=== PATIENT | male | born 1960 | race Caucasian/White ===

== ENCOUNTER 2018-01-18 14:36 | Inpatient (IN) | payer OTHER ==
[2018-01-18 17:49] VITALS: BMI 20.9
--- NOTE | 2018-01-18 21:26 | HP ---
COWS - Scale Resting Pulse: 0= [place] 80 or Below Sweatin=Flushed/Facial Moisture Restless Observation: 1= Difficult to Sit Still Pupil Size: 1= Pupils >than Normal Bone or Joint Aches: 2= Severe Diffuse Aches Runny Nose/ Eye Tearin= Runny Nose/Eyes GI Upset > 30mins: 1= Stomach Cramp Tremor Observation: 4= Gross Tremor/Twitching Yawning Observation: 1= 1-2x During Session Anxiety or Irritability: 2=Irritable/Anxious Goose Flesh Skin: 3=Piloerection COWS Score: 19 CIWA Score - CIWA Score Nausea/Vomitin-Mild Nausea/No Vomiting Muscle Tremors: 4-Moderate,w/Arms Extend Anxiety: 4-Mod. Anxious/Guarded Agitation: 4-Moderately Restless Paroxysmal Sweats: 3 Orientation: 0-Oriented Tacttile Disturbances: 0-None Auditory Disturbances: 0-None Visual Disturbances: 0-None Headache: 2-Mild CIWA-Ar Total Score: 18 Admission ROS S - HPI Chief Complaint: Alcohol and heroin withdrawal symptoms Allergies/Adverse Reactions: Allergies Allergy/AdvReac Type Severity Reaction Status Date / Time No Known Allergies Allergy Verified 01/18/18 18:29 History of Present Illness: 57 years old male with a long history of alcohol and heroin withdrawal symptoms is seeking admission to detox. Patient has been to previous detox and reports 5 years of sobriety. He has COPD, HTN, anxiety and depression. He denies suicide attempt and suicidal ideation at this time. This is his first admission to [facility]. Exam Limitations: No Limitations - Ebola screening Have you traveled outside of the country in the last 21 days: No (N) Have you had contact with anyone from an Ebola affected area: No Have you been sick,other than usual withdrawal symptoms: No Do you have a fever: No - Review of Systems Constitutional: Chills, Loss of Appetite, Malaise, Weakness EENT: reports: Nose Congestion, Dental Problems Respiratory: reports: No Symptoms reported Cardiac: reports: No Symptoms Reported GI: reports: Poor Appetite, Poor Fluid Intake, Abdominal cramping : reports: No Symptoms Reported Musculoskeletal: reports: Back Pain, Muscle Pain, Muscle Weakness Integumentary: reports: Dryness Neuro: reports: Tremors Endocrine: reports: No Symptoms Reported Hematology: reports: No Symptoms Reported Psychiatric: reports: Anxious, Depressed Patient History - Patient Medical History Hx Anemia: No Hx Asthma: No Hx Chronic Obstructive Pulmonary Disease (COPD): Yes (Not on medication) Hx Cardiac Disorders: No Hx Congestive Heart Failure: No Hx Hypertension: No Hx Hypercholesterolemia: No Hx Pacemaker: No HX Cerebrovascular Accident: No Hx Seizures: No Hx Diabetes: No Hx Gastrointestinal Disorders: No Hx Liver Disease: No Hx Genitourinary Disorders: No Hx Sexually Transmitted Disorders: No Hx Renal Disease (ESRD): No Hx Thyroid Disease: No Hx Human Immunodeficiency Virus (HIV): No (Negative 2017) Hx Hepatitis C: No Hx Depression: Yes (Not on medication) Hx Suicide Attempt: No (Denies suicide attem ptr and suicidal ideation at this time) Hx Bipolar Disorder: No Hx Schizophrenia: No Other Medical History: Anxiety - Not on medication - Patient Surgical History Past Surgical History: No Hx Neurologic Surgery: No Hx Cataract Extraction: No Hx Cardiac Surgery: No Hx Breast Biopsy: No Hx Abdominal Surgery: No Hx Appendectomy: No Hx Genitourinary Surgery: No Hx Section: No Hx Orthopedic Surgery: No Anesthesia Reaction: No - PPD History Previous Implant?: Yes Documented Results: Negative w/o proof Implanted On Prior R Admission?: No PPD to be Administered?: Yes - Reproductive History Patient is a Female of Child Bearing Age (11 -55 yrs old): No (Male) - Smoking Cessation Smoking history: Current every day smoker Have you smoked in the past 12 months: Yes Aproximately how many cigarettes per day: 20 Hx Chewing Tobacco Use: No Initiated information on smoking cessation: Yes 'Breaking Loose' booklet given: 01/18/18 - Substance & Tx. History Hx Alcohol Use: Yes Hx Substance Use: Yes Substance Use Type: Cocaine Hx Substance Use Treatment: Yes ([facility]) - Substances Abused Alcohol Route: Oral Frequency: Daily Amount used: LIQUOR- 5 PINTS Age of first use: 18 Date of Last Use: 01/17/18 Heroin Route: Injection Frequency: Daily Amount used: 20 bags Age of first use: 50 Date of Last Use: 01/17/18 Family Disease History - Family Disease History Family History: Denies Admission Physical Exam BHS - Vital Signs Vital Signs: Vital Signs - 24 hr 01/18/18 01/18/18 17:44 18:04 Temperature 98.8 F 98.3 F Pulse Rate 74 74 Respiratory 20 20 Rate Blood Pressure 179/143 179/143 - Physical General Appearance: Yes: Moderate Distress, Tremorous, Irritable, Sweating, Anxious HEENTM: Yes: Normal ENT Inspection, Normocephalic, Normal Voice, TAMANNA Respiratory: Yes: Lungs Clear, Normal Breath Sounds, No Respiratory Distress Neck: Yes: Supple Breast: Yes: Breast Exam Deferred Cardiology: Yes: Regular Rhythm, Regular Rate Abdominal: Yes: Normal Bowel Sounds, Soft Genitourinary: Yes: Within Normal Limits Back: Yes: Normal Inspection Musculoskeletal: Yes: Back pain, Muscle Pain Extremities: Yes: Tremors Neurological: Yes: Alert, Normal Mood/Affect Integumentary: Yes: Dry Lymphatic: Yes: Within Normal Limits - Diagnostic (1) Opioid dependence with withdrawal Current Visit: Yes Status: Chronic (2) Cocaine dependence, uncomplicated Current Visit: Yes Status: Chronic (3) Nicotine dependence Current Visit: Yes Status: Chronic (4) HTN (hypertension) Current Visit: Yes Status: Chronic (5) Anxiety Current Visit: Yes Status: Chronic (6) Depression Current Visit: Yes Status: Chronic Qualifiers: Depression Type: unspecified Qualified Code(s): F32.9 - Major depressive disorder, single episode, unspecified (7) COPD (chronic obstructive pulmonary disease) Current Visit: Yes Status: Acute BHS Breath Alcohol Content Breath Alcohol Content: 0 Urine Drug Screen - Results Drug Screen Negative: No Urine Drug Screen Results: MJ-Cocaine, OPI-Opiates, OXY-Oxycodone
[2018-01-18] MEDS ORDERED: MAGNESIUM HYDROX 2400MG/30ML ORAL SUSPENSION 30 ML CUP PO PRN (21:36)
[2018-01-18] MEDS ORDERED: LOPERAMIDE HCL 2 MG CAPSULE PO PRN (21:36)
[2018-01-18] MEDS ORDERED: MAG HYDROX/AL HYDROX/SIMETH 30 ML UNIT-DOSE CUP PO PRN (21:36)
[2018-01-18] MEDS ORDERED: MENTHOL/PHENOL 1 EACH UD MM PRN (21:36)
[2018-01-18] MEDS ORDERED: NICOTINE POLACRILEX 2 MG GUM BUC PRN (21:36)
[2018-01-18] MEDS ORDERED: P-EPHED 60MG/TRIPROLIDI 2.5MG TABLET PO PRN (21:36)
[2018-01-18] MEDS ORDERED: MAGNESIUM CITRATE 300 ML BOTTLE PO PRN (21:36)
[2018-01-18] MEDS ORDERED: IBUPROFEN 400 MG TABLET (FP) PO PRN (21:36)
[2018-01-18] MEDS ORDERED: METHADONE HCL 10 MG TABLET (FOR DETOX USE ONLY) PO ONE ×2 (21:36→23:00)
[2018-01-18] MEDS ORDERED: chlordiazePOXIDE HCL 25 MG CAPSULE PO PRN (21:36)
[2018-01-18] MEDS ORDERED: MELATONIN 5 MG TABLETS PO PRN (22:00)
[2018-01-18] MEDS: THIAMINE HCL 100 MG TABLET (FP) PO SCH (22:36)
[2018-01-18] MEDS: chlordiazePOXIDE HCL 25 MG CAPSULE PO SCH (22:37)
[2018-01-18] MEDS: guaiFENesin/D-METHORPHAN HB 10 ML UNIT-DOSE CUPS PO PRN (22:40)
[2018-01-18] MEDS ORDERED: cloNIDine HCL 0.1 MG TABLET PO ONE (22:45)
[2018-01-19 02:12] LABS: URINE APPEARANCE CLEAR; URINE BILIRUBIN NEGATIVE (<2.0 mg/dL); URINE COLOR YELLOW; URINE GLUCOSE (UA) NEGATIVE (NEGATIVE); URINE KETONE NEGATIVE (NEGATIVE); URINE LEUK ESTERASE NEGATIVE (NEGATIVE); URINE NITRITE NEGATIVE (NEGATIVE); URINE PROTEIN NEGATIVE (NEGATIVE); URINE UROBILINOGEN NEGATIVE mg/dL (0.2-1.0)
[2018-01-19] MEDS: ACETAMINOPHEN 325 MG TABLET (FP) PO PRN ×2 (02:50→10:25)
[2018-01-19] MEDS: chlordiazePOXIDE HCL 25 MG CAPSULE PO SCH ×4 (05:16→22:19)
[2018-01-19] MEDS ORDERED: cloNIDine HCL 0.1 MG TABLET PO ONE ×2 (06:56→15:50)
--- NOTE | 2018-01-19 07:03 | PN ---
BHS Progress Note Note: Patient;s blood pressure is B/P 191/96. Patient is asymptomatic Vital Signs Temperature 98.8 F 01/19/18 06:26 Pulse Rate 64 01/19/18 06:26 Respiratory Rate 18 01/19/18 06:30 Blood Pressure 191/96 01/19/18 06:26 O2 Sat by Pulse Oximetry (%) Action: Clonidine 0.2mg tablt oral ordered
[2018-01-19] MEDS: guaiFENesin/D-METHORPHAN HB 10 ML UNIT-DOSE CUPS PO PRN ×2 (09:15→22:22)
[2018-01-19] MEDS ORDERED: ALBUTEROL SO4 8 GM HFA INHALER IH ONE (09:17)
[2018-01-19] MEDS ORDERED: ALBUTEROL SO4 8 GM HFA INHALER IH PRN (09:19)
[2018-01-19] MEDS ORDERED: METHADONE HCL 10 MG TABLET (FOR DETOX USE ONLY) PO SCH (10:00)
[2018-01-19 10:09] LABS: HEMATOCRIT 39.6 % (35.4-49); HEMOGLOBIN 13.6 GM/dL (11.7-16.9); MCH 32.8 pg (25.7-33.7); MCHC 34.2 g/dl (32.0-35.9); MEAN CELL VOLUME 95.9 fl (80-96); MEAN PLT VOLUME 9.4 fl (7.5-11.1); PLATELET COUNT 259 K/MM3 (134-434); RBC 4.13 M/mm3 (4.00-5.60); RDW 14.7 % (11.9-15.9); WHITE BLOOD COUNT 6.9 K/mm3 (4.0-10.0)
[2018-01-19] MEDS: PRENATAL VITAMINS W/ FOLIC ACID TABLET (FP) PO SCH (10:24)
[2018-01-19] MEDS: NICOTINE 14 MG/24 HOURS TOPICAL PATCH TD SCH (10:25)
[2018-01-19] MEDS ORDERED: TRIMETHOBENZAMIDE HCL 200MG/2ML INJ IM PRN (10:48)
[2018-01-19] MEDS ORDERED: ALBUTEROL SO4 2.5/IPRATROPIUM 0.5 INH SOL 3 ML VIAL.NEB. NEB PRN (10:48)
[2018-01-19 10:55] LABS: CHLORIDE 101 mmol/L (98-107); SODIUM 139 mmol/L (136-145)
[2018-01-19 11:30] LABS: ALBUMIN 3.4 g/dl (3.4-5.0); ALK PHOS 110 U/L (45-117); ANION GAP 10 (8-16); BILIRUBIN,TOTAL 0.5 mg/dL (0.2-1.0); BLOOD UREA NITROGEN 13 mg/dL (7-18); CALCIUM 8.9 mg/dL (8.5-10.1); CO2 28 mmol/L (21-32); CREATININE 0.8 mg/dL (0.7-1.3); GLUCOSE,RANDOM 100 mg/dL (74-106); SGOT/AST 20 U/L (15-37); SGPT/ALT 24 U/L (12-78); TOT PROT 7.4 g/dl (6.4-8.2)
[2018-01-19] MEDS ORDERED: amLODIPine BESYLATE 10 MG TABLET (FP) PO ONE (11:30)
[2018-01-19] MEDS: LIDOCAINE 5% TOPICAL PATCH TP SCH (11:58)
--- NOTE | 2018-01-19 13:25 | CONSULT ---
[facility] Psychiatric Consult - Data Date of interview: 01/19/18 Admission source: [facility] Identifying data: Patient is a 59 year single male, father of four, unemployed, domiciled, and supported by [facility]. This is patient's first admission to detox at [facility]. Patient admitted for alcohol, cocaine, and heroin dependence. Substance Abuse History: Smoking Cessation. Smoking history: Current every day smoker. Have you smoked in the past 12 months: Yes. Aproximately how many cigarettes per day: 20. Hx Chewing Tobacco Use: No. Initiated information on smoking cessation: Yes. 'Breaking Loose' booklet given: 01/18/18. - Substance & Tx. History. Hx Alcohol Use: Yes. Hx Substance Use: Yes. Substance Use Type : Cocaine. Hx Substance Use Treatment: Yes ([facility]). - Substances Abused. Alcohol. Route: Oral. Frequency: Daily. Amount used: LIQUOR- 5 PINTS. Age of first use: 18. Date of Last Use: 01/17/18. Heroin. Route: Injection. Frequency: Daily. Amount used: 20 bags. Age of first use: 50. Date of Last Use: 01/17/18 Medical History: COPD, hypertension Psychiatric History: Patient denies h/o psychiatric hospitalization. Pt. saw a psychiatrist in 2005 after his mother pased away and was prescribed zoloft and risperdal. Patient discontinued medication after two weeks. Pt. denies current OPD. Pt. reports two suicide attempts via overdose on drugs. Physical/Sexual Abuse/Trauma History: Denies. Mental Status Exam - Mental Status Exam Alert and Oriented to: Time, Place, Person Cognitive Function: Good Patient Appearance: Unkempt Mood: Withdrawn, Anxious, Euthymic Affect: Mood Congruent Patient Behavior: Fatigued, Cooperative Speech Pattern: Appropriate Voice Loudness: Moderately Soft/Quiet Thought Process: Intact, Goal Oriented Thought Disorder: Not Present Hallucinations: Denies Suicidal Ideation: Denies Homicidal Ideation: Denies Insight/Judgement: Poor Sleep: Poorly Appetite: Poor Muscle strength/Tone: Normal Gait/Station: Normal Psychiatric Findings - Problem List (Colbert 1, 2,3) (1) Substance-induced sleep disorder Current Visit: Yes Status: Acute (2) Substance induced mood disorder Current Visit: Yes Status: Acute (3) COPD (chronic obstructive pulmonary disease) Current Visit: Yes Status: Chronic Qualifiers: COPD type: unspecified COPD Qualified Code(s): J44.9 - Chronic obstructive pulmonary disease, unspecified (4) Cocaine dependence, uncomplicated Current Visit: Yes Status: Chronic (5) HTN (hypertension) Current Visit: Yes Status: Chronic Qualifiers: Hypertension type: unspecified Qualified Code(s): I10 - Essential (primary ) hypertension (6) Nicotine dependence Current Visit: Yes Status: Chronic Qualifiers: Nicotine product type: cigarettes Substance use status: uncomplicated Qualified Code(s): F17.210 - Nicotine dependence, cigarettes, uncomplicated (7) Opioid dependence with withdrawal Current Visit: Yes Status: Acute - Initial Treatment Plan Initial Treatment Plan: Psychoeducation provided. Detoxification in progress. Ambien 10mg qhs prn ordered. Pt. reports favorable effect from accepting ambien in the past. Benefits and side effects discussed. Pt. made aware of the risk of parasomnia. Verbal consent given.
--- NOTE | 2018-01-19 14:12 | PN ---
S CIWA - CIWA Score Nausea/Vomitin Muscle Tremors: 3 Anxiety: 4-Mod. Anxious/Guarded Agitation: 4-Moderately Restless Paroxysmal Sweats: 2 Orientation: 2-Disoriented Date<2 days Tacttile Disturbances: 2-Mild Itch/Numbness/Burn Auditory Disturbances: 0-None Visual Disturbances: 1-Very Mild Sensitivity Headache: 0-None Present CIWA-Ar Total Score: 21 BHS COWS - Scale Resting Pulse: 0= [place] 80 or Below Sweatin= Chills/Flushing Restless Observation: 1= Difficult to Sit Still Pupil Size: 0= Normal to Room Light Bone or Joint Aches: 2= Severe Diffuse Aches Runny Nose/ Eye Tearin= None GI Upset > 30mins: 2= Nausea/Diarrhea Tremor Observation of Outstretched Hands: 2= Slight Tremor Visible Yawning Observation: 1= 1-2x During Session Anxiety or Irritability: 4=Extreme Anxiety Goose Flesh Skin: 3=Piloerection COWS Score: 16 BHS Progress Note (SOAP) Subjective: Diarrhea, Nausea, Tremors, Interrupted Sleep, Anxious. Objective: PATIENT A & O X 2 (UNCERTAIN ABOUT CURRENT DAY / DATE). PATIENT OBSERVED AMBULATING ON UNIT. NO ACUTE DISTRESS. 01/19/18 14:09 Vital Signs Temperature 98.3 F 01/19/18 10:20 Pulse Rate 71 01/19/18 10:20 Respiratory Rate 20 01/19/18 10:20 Blood Pressure 174/96 01/19/18 10:20 O2 Sat by Pulse Oximetry (%) Laboratory Tests 01/18/18 01/19/18 01/19/18 22:36 07:30 07:30 WBC 6.9 RBC 4.13 Hgb 13.6 Hct 39.6 MCV 95.9 MCH 32.8 MCHC 34.2 RDW 14.7 Plt Count 259 MPV 9.4 Sodium 139 Potassium 4.0 Chloride 101 Carbon Dioxide 28 Anion Gap 10 BUN 13 Creatinine 0.8 Creat Clearance w eGFR > 60 Random Glucose 100 Calcium 8.9 Total Bilirubin 0.5 AST 20 ALT 24 Alkaline Phosphatase 110 Total Protein 7.4 Albumin 3.4 Urine Color Yellow Urine Appearance Clear Urine pH 5.0 Ur Specific [place] 1.025 Urine Protein Negative Urine Glucose (UA) Negative Urine Ketones Negative Urine Blood Negative Urine Nitrite Negative Urine Bilirubin Negative Urine Urobilinogen Negative Ur Leukocyte Esterase Negative RPR Titer 01/19/18 07:30 WBC RBC Hgb Hct MCV MCH MCHC RDW Plt Count MPV Sodium Potassium Chloride Carbon Dioxide Anion Gap BUN Creatinine Creat Clearance w eGFR Random Glucose Calcium Total Bilirubin AST ALT Alkaline Phosphatase Total Protein Albumin Urine Color Urine Appearance Urine pH Ur Specific [place] Urine Protein Urine Glucose (UA) Urine Ketones Urine Blood Urine Nitrite Urine Bilirubin Urine Urobilinogen Ur Leukocyte Esterase RPR Titer Nonreactive LABS NOTED. Assessment: 01/19/18 14:09 WITHDRAWAL SYMPTOMS. HYPERTENSION. 01/19/18 14:10 Plan: CONTINUE DETOX. START AMLODIPINE, 10 MG PO DAILY FOR ELEVATED BP (PATIENT WAS PREVIOSUOLY PRESCRIBED BY OUTSIDE MEDICAL PROVIDER). PRN TIGAN IM FOR NAUSEA. LIDODERM PATCH OF LOWER BACK PAIN. PRN IMMODIUM FOR DIARRHEA. CONTINUE TO MONITOR BP.
--- NOTE | 2018-01-19 14:26 | EKG ---
Test Reason : Blood Pressure : / mmHG Vent. Rate : 062 BPM Atrial Rate : 062 BPM P-R Int : 158 ms QRS Dur : 092 ms QT Int : 418 ms P-R-T Axes : 000 -01 024 degrees QTc Int : 424 ms NORMAL SINUS RHYTHM NORMAL ECG NO PREVIOUS ECGS AVAILABLE Confirmed by MANE DIAZ MD ([id number]) on 01/19/2018 2:25:47 PM Referred By: Confirmed By:MANE DIAZ MD
[2018-01-19] MEDS ORDERED: LIDOCAINE PATCH REMOVAL MC SCH (22:00)
[2018-01-19] MEDS ORDERED: ZOLPIDEM TARTRATE 10 MG TABLET (PARK CARE ONLY) PO PRN (22:00)
[2018-01-19] MEDS ORDERED: cloNIDine HCL 0.1 MG TABLET PO SCH (22:00)
[2018-01-19] MEDS: THIAMINE HCL 100 MG TABLET (FP) PO SCH (22:19)
[2018-01-20] MEDS: chlordiazePOXIDE HCL 25 MG CAPSULE PO SCH ×2 (05:17→10:41)
[2018-01-20] MEDS ORDERED: cloNIDine HCL 0.1 MG TABLET PO PRN (06:30)
--- NOTE | 2018-01-20 08:53 | PN ---
S CIWA - CIWA Score Nausea/Vomitin Muscle Tremors: 2 Anxiety: 4-Mod. Anxious/Guarded Agitation: 4-Moderately Restless Paroxysmal Sweats: 2 Orientation: 0-Oriented Tacttile Disturbances: 0-None Auditory Disturbances: 0-None Visual Disturbances: 1-Very Mild Sensitivity Headache: 0-None Present CIWA-Ar Total Score: 19 BHS COWS - Scale Resting Pulse: 0= [place] 80 or Below Sweatin= Chills/Flushing Restless Observation: 0= Sits Still Pupil Size: 0= Normal to Room Light Bone or Joint Aches: 2= Severe Diffuse Aches Runny Nose/ Eye Tearin= Nasal Congestion GI Upset > 30mins: 5=Frequent Vomit/Diarrhea Tremor Observation of Outstretched Hands: 2= Slight Tremor Visible Yawning Observation: 1= 1-2x During Session Anxiety or Irritability: 4=Extreme Anxiety Goose Flesh Skin: 0=Smooth Skin COWS Score: 16 BHS Progress Note (SOAP) Subjective: Vomiting, Tremors, Anxious, Sweating, Body Aches. Objective: PATIENT A & O X 3. NO ACUTE DISTRESS. 01/20/18 08:49 Vital Signs Temperature 97.5 F L 01/20/18 06:05 Pulse Rate 67 01/20/18 06:05 Respiratory Rate 18 01/20/18 06:05 Blood Pressure 154/103 01/20/18 06:05 O2 Sat by Pulse Oximetry (%) Laboratory Tests 01/18/18 01/19/18 01/19/18 22:36 07:30 07:30 WBC 6.9 RBC 4.13 Hgb 13.6 Hct 39.6 MCV 95.9 MCH 32.8 MCHC 34.2 RDW 14.7 Plt Count 259 MPV 9.4 Sodium 139 Potassium 4.0 Chloride 101 Carbon Dioxide 28 Anion Gap 10 BUN 13 Creatinine 0.8 Creat Clearance w eGFR > 60 Random Glucose 100 Calcium 8.9 Total Bilirubin 0.5 AST 20 ALT 24 Alkaline Phosphatase 110 Total Protein 7.4 Albumin 3.4 Urine Color Yellow Urine Appearance Clear Urine pH 5.0 Ur Specific [place] 1.025 Urine Protein Negative Urine Glucose (UA) Negative Urine Ketones Negative Urine Blood Negative Urine Nitrite Negative Urine Bilirubin Negative Urine Urobilinogen Negative Ur Leukocyte Esterase Negative RPR Titer 01/19/18 07:30 WBC RBC Hgb Hct MCV MCH MCHC RDW Plt Count MPV Sodium Potassium Chloride Carbon Dioxide Anion Gap BUN Creatinine Creat Clearance w eGFR Random Glucose Calcium Total Bilirubin AST ALT Alkaline Phosphatase Total Protein Albumin Urine Color Urine Appearance Urine pH Ur Specific [place] Urine Protein Urine Glucose (UA) Urine Ketones Urine Blood Urine Nitrite Urine Bilirubin Urine Urobilinogen Ur Leukocyte Esterase RPR Titer Nonreactive LABS NOTED. Assessment: 01/20/18 08:50 WITHDRAWAL SYMPTOMS. HYPERTENSION. VOMITING. 01/20/18 08:53 Plan: CONTINUE DETOX. PATIENT TO BE SENT TO [facility] FOR PERSISTENTLY ELEVATED BP AND FOR PERSISTENT VOMITING DESPITE TREATMENT WITH TIGAN IM. SEE FOLLOWING PROGRESS NOTE.
--- NOTE | 2018-01-20 09:09 | PN ---
[facility] Progress Note Note: RECEIVED REPORT THAT PATIENT HAS BEEN EXPERIENCING PERSISTENT VOMITING DESPITE TREATMENT WITH TIGAN IM (LAST DOSE @ 0900 TODAY). PATIENT'S BP REMAINS ELEVATED (185/114 @ 0800) DESPITE STARTING TREATMENT WITH BOTH AMLODIPINE AND CLONIDINE YESTERDAY. PATIENT ALSO REPORTS CHEST PAIN (MIDSTERNAL) AND PAIN "BETWEEN BOTH SHOULDER BLADES ON BACK," WITH STABBING QUALITY. PATIENT HAS HISTORY OF HTN ALTHOUGH HE HAS NOT TAKEN MEDICATION FOR SOME TIME PRIOR TO THIS DETOX ADMISSION. PATIENT ALSO REPORTING BODY ACHES, PRODUCTIVE COUGH, SWEATING, ANXIETY. VS: BP: 185/114; p: 70: RR: 16; T: 98.9. REPORT GIVEN TO DR. Gema MAGALLANES AT [facility]. PATIENT TO BE TAKEN TO [facility] FOR FURTHER MEDICAL EVALUATION. Chance EISENBERG NP
[2018-01-20 09:24] VITALS: BP 179/101; PULSE 70; TEMP 98.9
[2018-01-20] MEDS ORDERED: METHADONE HCL 5 MG TABLET (FOR DETOX USE ONLY) PO SCH (10:00)
[2018-01-20] MEDS ORDERED: amLODIPine BESYLATE 10 MG TABLET (FP) PO SCH (10:00)
[2018-01-20] MEDS: LIDOCAINE 5% TOPICAL PATCH TP SCH (10:41)
[2018-01-20] MEDS: PRENATAL VITAMINS W/ FOLIC ACID TABLET (FP) PO SCH (10:42)
[2018-01-20] MEDS: NICOTINE 14 MG/24 HOURS TOPICAL PATCH TD SCH (10:42)
--- NOTE | 2018-01-20 13:53 | HP ---
CC: n/v, lower back pain, stomach pain PCP: None HPI: 57 yo M h/o COPD, HTN and polysubstance abuse sent from [facility] for suspected alcohol or heroin withdrawals. Patient endorse the above symptoms started 3 days ago but getting progressively worse after he started heroin and alcohol detox at [facility] yesterday morning. The cluster of symptoms include n/ v, diarrhea, stomach pain, lower back pain (chronic), headache, restlessness, chest pain, shortness of breath. Denies dysuria, focal weakness, palpitation, vision change, sick contact, travel PMH: as above PSH: None Social History: alcohol: 5 pints of vodka a day 5-6 years; heroin: snore 20 packs a day for 3-4 years; 1 pack a day of cig for 4-5 years Family History: non-contributory Allergy: NKDA Home Meds: Ambulatory Orders Acetaminophen [Acetaminophen ER] 650 mg PO PRN 01/20/18 Albuterol Sulfate [Proventil HFA Inhaler -] 1 - 2 inh PO TID 01/20/18 Amlodipine Besylate 10 mg PO DAILY 01/20/18 Chlordiazepoxide [Librium -] 25 mg PO TID 01/20/18 Clonidine HCl [Catapres] 0.1 mg PO PRN 01/20/18 Lidocaine 1 each TP DAILY 01/20/18 Loperamide HCl [Imodium -] 2 mg PO BID 01/20/18 Mag Hydrox/Al Hydrox/Simeth [Mylanta *Suspension*] 30 ml PO ONCE 01/20/18 Methadone HCl [Dolophine HCl] 15 mg PO DAILY 01/20/18 Thiamine HCl [B-1] 100 mg PO DAILY 01/20/18 Trimethobenzamide Injection [Tigan *Injection*] 200 mg IM ONCE 01/20/18 Zolpidem Tartrate [Ambien] 10 mg PO PRN 01/20/18 ROS: Constitutional: + fever + chills, +loss of appetite, + weakness or weight change HEENT: +headache, no nasal congestion, sore throat, ear pain, vision change Skin: No rash or lesion Cardiovascular: + active chest pain or sob Pulmonary: + cough non productive Endocrine: No polyuria, polydipsia, skin /hair changes, heat/cold intolerance. GI: +active abd pain, +nausea , +vomiting, +diarrhea : no constipation. No frequency, no urgency, no dysuria, no hematuria. MSK: +lower back pain Psychology: No depression, anxiety, or insomnia. Physical Examination Last Vital Signs Temp Pulse Resp BP Pulse Ox 98.9 F 70 16 179/101 01/20/18 08:45 01/20/18 08:45 01/20/18 08:45 01/20/18 08:45 General: Uncomfortable, restless, diaphoresis, no in any cardiopulmonary distress Eyes: pupils equal and reactive to light ENT: Oropharynx clear with no lesions/erythema. Neck: Supple with no LAD or masses. Lymph Nodes: No cervical or inguinal LAD. Cardiovascular: RRR, S1 and S2 with no murmur Lungs: b/l upper lobes rhonchi Abdomen: normal bowel sounds. diffuse tenderness across all quadrants. no guarding/rebound Extremeties: +1 pitting edema in RLE, +2 pitting edema in LLE CBCD WBC 6.9 K/mm3 (4.0-10.0) 01/19/18 07:30 RBC 4.13 M/mm3 (4.00-5.60) 01/19/18 07:30 Hgb 13.6 GM/dL (11.7-16.9) 01/19/18 07:30 Hct 39.6 % (35.4-49) 01/19/18 07:30 MCV 95.9 fl (80-96) 01/19/18 07:30 MCHC 34.2 g/dl (32.0-35.9) 01/19/18 07:30 RDW 14.7 % (11.9-15.9) 01/19/18 07:30 Plt Count 259 K/MM3 (134-434) 01/19/18 07:30 MPV 9.4 fl (7.5-11.1) 01/19/18 07:30 CMP Sodium 139 mmol/L (136-145) 01/19/18 07:30 Potassium 4.0 mmol/L (3.5-5.1) 01/19/18 07:30 Chloride 101 mmol/L (98-107) 01/19/18 07:30 Carbon Dioxide 28 mmol/L (21-32) 01/19/18 07:30 Anion Gap 10 (8-16) 01/19/18 07:30 BUN 13 mg/dL (7-18) 01/19/18 07:30 Creatinine 0.8 mg/dL (0.7-1.3) 01/19/18 07:30 Creat Clearance w eGFR > 60 (>60) 01/19/18 07:30 Calcium 8.9 mg/dL (8.5-10.1) 01/19/18 07:30 Total Bilirubin 0.5 mg/dL (0.2-1.0) 01/19/18 07:30 AST 20 U/L (15-37) 01/19/18 07:30 ALT 24 U/L (12-78) 01/19/18 07:30 Alkaline Phosphatase 110 U/L (45-117) 01/19/18 07:30 Total Protein 7.4 g/dl (6.4-8.2) 01/19/18 07:30 Albumin 3.4 g/dl (3.4-5.0) 01/19/18 07:30 Imaging: EKG: NSR, no ST change, normal QTc A/P: DVT ppx: heparin tid Dispo: med-surg admission Cody De Paz PGY3 [phone] Visit type - Emergency Visit Emergency Visit: Yes ED Registration Date: 01/18/18 Care time: The patient presented to the Emergency Department on the above date and was hospitalized for further evaluation of their emergent condition. - New Patient This patient is new to me today: Yes Date on this admission: 01/20/18 - Critical Care Critical Care patient: No Hospitalist Screening - Colonoscopy Questionnaire Colonoscopy Questionnaire: Colonoscopy Questionnaire
[2018-01-20] MEDS ORDERED: chlordiazePOXIDE HCL 25 MG CAPSULE PO ONE (14:08)
[2018-01-20] MEDS ORDERED: chlordiazePOXIDE 5 MG CAPSULE PO SCH (23:00)
[2018-01-21] MEDS ORDERED: chlordiazePOXIDE HCL 10 MG CAPSULE PO SCH (23:00)
[2018-01-22] MEDS ORDERED: METHADONE HCL 10 MG TABLET (FOR DETOX USE ONLY) PO SCH (10:00)
[2018-01-23] MEDS ORDERED: METHADONE HCL 5 MG TABLET (FOR DETOX USE ONLY) PO SCH (06:00)
== END 2018-01-20 15:19 | disposition short-term general hospital (02) | DRG 773 ==
LOC: YASAS 14:36 → Y3N 19:07
PROVIDERS: ADMIT Surgery; ATTEND Surgery
PROC: HZ2ZZZZ Detoxification Services for Substance Abuse Treatment (ICD-10-PCS; principal; 2018-01-18)
DX: F11.23 Opioid dependence with withdrawal (principal); F14.20 Cocaine dependence, uncomplicated; F17.210 Nicotine dependence, cigarettes, uncomplicated; F41.9 Anxiety disorder, unspecified; F32.9 Major depressive disorder, single episode, unspecified; F19.24 Other psychoactive substance dependence with psychoactive substance-induced mood disorder; F19.282 Other psychoactive substance dependence with psychoactive substance-induced sleep disorder; I10 Essential (primary) hypertension; J45.909 Unspecified asthma, uncomplicated; J44.9 Chronic obstructive pulmonary disease, unspecified; G43.A1 Cyclical vomiting, in migraine, intractable
CPT/HCPCS: 36415; 80053; 81003; 85027; 86593; 93005; 93010; 94640; J0735; J7620